=== PATIENT | male | born 1945 | race Caucasian/White ===

== ENCOUNTER 2022-05-08 05:17 | Day surgery (SDC) | payer OTHER ==
[2022-05-03 13:46] VITALS: BMI 24.1
[~2022-05-08 05:17] MED LIST: ACETAMINOPHEN 325 MG TABLET (FP) PO PRN; CYCLOPENTOLATE HCL 1% OPHTH SOLN 2 ML BOTTLE OP SCH; KETOROLAC TROMETHAMINE 0.5% EYE DROP 1 DROP DROPS OP SCH; OFLOXACIN 0.3% OPHTHALMIC SOLUTION 5 ML BOTTLE OP SCH; PHENYLEPHRINE 2.5% OPHTH SOLN 15 ML BOTTLE OP SCH; TROPICAMIDE 1% OPHTH SOLN 15 ML BOTTLE OP SCH
[2022-05-08] MEDS ORDERED: KETOROLAC TROMETHAMINE 0.5% EYE DROP 1 DROP DROPS ONE (07:20)
[2022-05-08] MEDS ORDERED: CYCLOPENTOLATE HCL 1% OPHTH SOLN 2 ML BOTTLE ONE (07:20)
[2022-05-08] MEDS ORDERED: PHENYLEPHRINE 2.5% OPHTH SOLN 15 ML BOTTLE ONE (07:21)
[2022-05-08] MEDS ORDERED: TROPICAMIDE 1% OPHTH SOLN 15 ML BOTTLE ONE (07:21)
[2022-05-08] MEDS ORDERED: OFLOXACIN 0.3% OPHTHALMIC SOLUTION 5 ML BOTTLE ONE (07:21)
[2022-05-08] MEDS ORDERED: LIDOCAINE HCL/PF 1% SDV 5ML VIAL ONE (07:23)
[2022-05-08] MEDS ORDERED: TETRACAINE 0.5% OPHTH SOLN 2 ML BOTTLE ONE (07:23)
[2022-05-08] MEDS ORDERED: POVIDONE-IODINE 5% OPHTHALMIC PREP 30 ML SOLUTION ONE (07:23)
[2022-05-08] MEDS ORDERED: BSS (NA/CA/MG/K) BALANCED SALT SOLUTION OPHTH SOLN 15 ML BOTTLE ONE (07:23)
[2022-05-08] MEDS ORDERED: CYCLOPENTOLATE HCL 1% OPHTH SOLN 2 ML BOTTLE OD ONE ×3 (07:30→07:40)
[2022-05-08] MEDS ORDERED: OFLOXACIN 0.3% OPHTHALMIC SOLUTION 5 ML BOTTLE OD ONE ×3 (07:30→07:40)
[2022-05-08] MEDS ORDERED: KETOROLAC TROMETHAMINE 0.5% EYE DROP 1 DROP DROPS OD ONE ×3 (07:30→07:40)
[2022-05-08] MEDS ORDERED: PHENYLEPHRINE 2.5% OPHTH SOLN 15 ML BOTTLE OD ONE ×3 (07:30→07:40)
[2022-05-08] MEDS ORDERED: TROPICAMIDE 1% OPHTH SOLN 15 ML BOTTLE OD ONE ×3 (07:30→07:40)
[2022-05-08 07:34] VITALS: RESP 18
[2022-05-08] MEDS ORDERED: MIDAZOLAM HCL 2 MG/2 ML SINGLE DOSE VIAL ONE (09:07)
[2022-05-08] MEDS ORDERED: PROPOFOL 20 ML ONE (09:11)
[2022-05-08] MEDS ORDERED: SUCCINYLCHOLINE CHLORIDE 200 MG/10 ML SYRINGE ONE (09:11)
[2022-05-08] MEDS ORDERED: TETRACAINE 0.5% OPHTH SOLN 2 ML BOTTLE TP ONE (09:11)
[2022-05-08] MEDS ORDERED: POVIDONE-IODINE 5% OPHTHALMIC PREP 30 ML SOLUTION OD ONE (09:12)
[2022-05-08] MEDS ORDERED: BSS (NA/CA/MG/K) BALANCED SALT SOLUTION OPHTH SOLN 15 ML BOTTLE OD ONE (09:19)
[2022-05-08] MEDS ORDERED: LIDOCAINE HCL 1% PRESERVATIVE FREE - 30ML VIAL IO ONE (09:20)
[2022-05-08] MEDS ORDERED: CHONDROITIN SU A/HYALUR SOD 1 KIT IO ONE (09:20)
[2022-05-08] MEDS ORDERED: PHENYLEPHRINE/KETOROLAC 4 ML VIAL IO ONE (09:29)
[2022-05-08 11:05] VITALS: BP 144/85; PULSE 63; TEMP 98.6
== END 2022-05-08 11:10 | disposition home or self-care (01) ==
LOC: JASU-SURG 05:17
PROVIDERS: ATTEND Ophthalmology
PROC: 08RJ3JZ Replacement of Right Lens with Synthetic Substitute, Percutaneous Approach (ICD-10-PCS; principal; 2022-05-08 09:00)
DX: H26.9 Unspecified cataract (principal)
CPT/HCPCS: J1097

== ENCOUNTER 2022-07-31 04:31 | Day surgery (SDC) | payer OTHER ==
[2022-07-29 12:49] VITALS: BMI 23.6
[~2022-07-31 04:31] MED LIST changes: +BSS (NA/CA/MG/K) BALANCED SALT SOLUTION OPHTH SOLN 15 ML BOTTLE OS ONE; +BUPIVACAINE HCL/PF 0.75% 10 ML VIAL PNB ONE; +CHONDROITIN SU A/HYALUR SOD 1 KIT IO ONE; -CYCLOPENTOLATE HCL 1% OPHTH SOLN 2 ML BOTTLE OP SCH; -KETOROLAC TROMETHAMINE 0.5% EYE DROP 1 DROP DROPS OP SCH; +LIDOCAINE 1% P/F 10 MG/ML VIAL PNB ONE; +LIDOCAINE HCL/PF 2% SDV 5ML VIAL PNB ONE; -OFLOXACIN 0.3% OPHTHALMIC SOLUTION 5 ML BOTTLE OP SCH; -PHENYLEPHRINE 2.5% OPHTH SOLN 15 ML BOTTLE OP SCH; +PHENYLEPHRINE/KETOROLAC 4 ML VIAL IO ONE; +TETRACAINE 0.5% OPHTH SOLN 2 ML BOTTLE OS ONE; -TROPICAMIDE 1% OPHTH SOLN 15 ML BOTTLE OP SCH; +TRYPAN BLUE 0.5 ML DISP.SYRIN IO ONE
[2022-07-31 10:27] VITALS: RESP 18
[2022-07-31] MEDS ORDERED: CYCLOPENTOLATE HCL 1% OPHTH SOLN 2 ML BOTTLE ONE (10:39)
[2022-07-31] MEDS ORDERED: TROPICAMIDE 1% OPHTH SOLN 15 ML BOTTLE ONE (10:39)
[2022-07-31] MEDS ORDERED: OFLOXACIN 0.3% OPHTHALMIC SOLUTION 5 ML BOTTLE ONE (10:39)
[2022-07-31] MEDS ORDERED: KETOROLAC TROMETHAMINE 0.5% EYE DROP 1 DROP DROPS ONE (10:39)
[2022-07-31] MEDS: KETOROLAC TROMETHAMINE 0.5% EYE DROP 1 DROP DROPS OP SCH ×3 (10:50→11:00)
[2022-07-31] MEDS: TROPICAMIDE 1% OPHTH SOLN 15 ML BOTTLE OP SCH ×3 (10:50→11:19)
[2022-07-31] MEDS: CYCLOPENTOLATE HCL 1% OPHTH SOLN 2 ML BOTTLE OP SCH ×3 (10:50→11:00)
[2022-07-31] MEDS: PHENYLEPHRINE 2.5% OPHTH SOLN 15 ML BOTTLE OP SCH ×3 (10:50→11:00)
[2022-07-31] MEDS: OFLOXACIN 0.3% OPHTHALMIC SOLUTION 5 ML BOTTLE OP SCH ×2 (10:55→11:00)
[2022-07-31] MEDS ORDERED: ONDANSETRON 4 MG/2 ML VIAL ONE (11:59)
[2022-07-31] MEDS ORDERED: LIDOCAINE HCL/PF 2% SDV 5ML VIAL ONE (11:59)
[2022-07-31] MEDS ORDERED: FENTANYL CITRATE/PF 50 MCG/ML VIAL ONE (11:59)
[2022-07-31] MEDS ORDERED: PROPOFOL 20 ML ONE (12:03)
[2022-07-31] MEDS ORDERED: LIDOCAINE HCL/PF 2% SDV 5ML VIAL PNB ONE (12:05)
[2022-07-31] MEDS ORDERED: BUPIVACAINE HCL/PF 0.75% 10 ML VIAL PNB ONE (12:05)
[2022-07-31] MEDS ORDERED: BSS (NA/CA/MG/K) BALANCED SALT SOLUTION OPHTH SOLN 15 ML BOTTLE OS ONE (12:15)
[2022-07-31] MEDS ORDERED: LIDOCAINE 1% P/F 10 MG/ML VIAL PNB ONE (12:16)
[2022-07-31] MEDS ORDERED: CHONDROITIN SU A/HYALUR SOD 1 KIT IO ONE (12:17)
[2022-07-31] MEDS ORDERED: PHENYLEPHRINE/KETOROLAC 4 ML VIAL IO ONE (12:21)
[2022-07-31 14:00] VITALS: BP 111/63; PULSE 72; TEMP 97.8
== END 2022-07-31 14:15 | disposition home or self-care (01) ==
LOC: JASU-SURG 04:31
PROVIDERS: ATTEND Ophthalmology
PROC: 08RK3JZ Replacement of Left Lens with Synthetic Substitute, Percutaneous Approach (ICD-10-PCS; principal; 2022-07-31 12:00)
DX: H26.9 Unspecified cataract (principal)
CPT/HCPCS: J1097; V2632

== ENCOUNTER 2023-05-29 19:24 | Inpatient (IN) | payer OTHER ==
[2023-05-29 19:32] VITALS: BMI 21.9
[2023-05-29] MEDS ORDERED: SODIUM CHLORIDE 0.9% 500 ML INFUS.BAG IV ONE ×2 (20:26→21:52)
[2023-05-29] MEDS ORDERED: ACETAMINOPHEN 1000 MG/100 ML BAG IVPB ONE (20:26)
[2023-05-29] MEDS ORDERED: chlordiazePOXIDE HCL 25 MG CAPSULE PO ONE (20:27)
[2023-05-29] MEDS ORDERED: chlordiazePOXIDE HCL 25 MG CAPSULE ONE (20:44)
[2023-05-29] MEDS ORDERED: ACETAMINOPHEN INJECTION 100 ML IVPB ONE (20:44)
[2023-05-29 21:07] LABS: BASO % 0.6 % (0-2.0); EOS % 0.6 % (0-4.5); HEMATOCRIT 31.3 % (35.4-49); HEMOGLOBIN 10.8 GM/dL (11.7-16.9); LYMPH % 14.8 % (8-40); MCH 32.9 pg (25.7-33.7); MCHC 34.6 g/dl (32.0-35.9); MEAN CELL VOLUME 95.1 fl (80-96); MEAN PLT VOLUME 8.1 fl (7.5-11.1); MONO % 13.7 % (3.8-10.2); NEUT % 70.3 % (42.8-82.8); PLATELET COUNT 277 10^3/uL (134-434); RBC 3.29 M/mm3 (4.00-5.60); RDW 13.8 % (11.9-15.9); WHITE BLOOD COUNT 7.7 K/mm3 (4.0-10.0)
[2023-05-29 21:29] LABS: CHLORIDE 97 mmol/L (98-107); POTASSIUM 5.3 mmol/L (3.5-5.1); SODIUM 135 mmol/L (136-145)
[2023-05-29 21:33] LABS: ALBUMIN 3.8 g/dl (3.4-5.0); ANION GAP 6 MMOL/L (8-16); BLOOD UREA NITROGEN 32.8 mg/dL (7-18); CO2 31 mmol/L (21-32); GLUCOSE,RANDOM 108 mg/dL (74-106)
[2023-05-29 21:34] LABS: LIPASE 89 U/L (73-393)
[2023-05-29 21:36] LABS: CREATININE 1.9 mg/dL (0.55-1.3); SGOT/AST 68 U/L (15-37); SGPT/ALT 52 U/L (13-61)
[2023-05-29 21:38] LABS: BILIRUBIN,TOTAL 1.1 mg/dL (0.2-1); TOT PROT 7.2 g/dl (6.4-8.2)
[2023-05-29 21:39] LABS: ALK PHOS 67 U/L (45-117)
[2023-05-29 21:40] LABS: CALCIUM 14.7 mg/dL (8.5-10.1)
[2023-05-29 22:14] LABS: MAGNESIUM 1.7 mg/dL (1.8-2.4)
[2023-05-29 22:18] LABS: PHOSPHOROUS 4.1 mg/dL (2.5-4.9)
[2023-05-29 22:26] LABS: HIV INTERPRETATION NEGATIVE (NEGATIVE)
[2023-05-29 23:12] LABS: EPI CELLS 13 /uL (0-25.1); HYALINE CASTS 2 /uL (0-3.1); PH,URINE 5.5 (5.0-8.0); URINE APPEARANCE CLEAR; URINE BACTERIA 7 /uL (0-1359); URINE BILIRUBIN NEGATIVE (NEGATIVE); URINE COLOR YELLOW; URINE GLUCOSE (UA) NEGATIVE (NEGATIVE); URINE KETONE NEGATIVE (NEGATIVE); URINE LEUK ESTERASE 1+ (NEGATIVE); URINE NITRITE NEGATIVE (NEGATIVE); URINE PROTEIN TRACE (NEGATIVE); URINE RBC 98 /uL (0-23.9); URINE UROBILINOGEN 0.2 mg/dL (0.2-1.0); URINE WBC 239 /uL (0-25.8)
[2023-05-30 03:17] LABS: POTASSIUM 4.3 mmol/L (3.5-5.1)
[2023-05-30 03:19] LABS: BLOOD UREA NITROGEN 29.9 mg/dL (7-18); CALCIUM 13.1 mg/dL (8.5-10.1)
[2023-05-30 03:23] LABS: CREATININE 1.7 mg/dL (0.55-1.3)
[2023-05-30] MEDS ORDERED: LACTATED RINGERS SOLUTION 1,000 ML/1,000 ML INFUS.BAG IV SCH (03:45)
[2023-05-30] MEDS ORDERED: CALCITONIN - SALMON SYNTHETIC 400 UNIT/2 ML VIAL SQ ONE (03:45)
[2023-05-30] MEDS ORDERED: DENOSUMAB 120 MG/1.7 ML VIAL SQ ONE (11:50)
[2023-05-30] MEDS: LACTATED RINGERS SOLUTION 1,000 ML/1,000 ML INFUS.BAG IV SCH ×2 (11:51→21:19)
[2023-05-30 12:00] LABS: POTASSIUM 4.2 mmol/L (3.5-5.1)
[2023-05-30 12:04] LABS: ALBUMIN 3.4 g/dl (3.4-5.0); BLOOD UREA NITROGEN 26.7 mg/dL (7-18); CALCIUM 12.1 mg/dL (8.5-10.1)
[2023-05-30 12:07] LABS: CREATININE 1.5 mg/dL (0.55-1.3)
[2023-05-30 12:09] LABS: BILIRUBIN,TOTAL 1.1 mg/dL (0.2-1); TOT PROT 6.7 g/dl (6.4-8.2)
[2023-05-30] MEDS: PANTOPRAZOLE 40 MG TABLET PO SCH (12:17)
[2023-05-30 19:40] LABS: POTASSIUM 4.5 mmol/L (3.5-5.1)
[2023-05-30 19:43] LABS: BLOOD UREA NITROGEN 23.3 mg/dL (7-18); CALCIUM 11.3 mg/dL (8.5-10.1)
[2023-05-30 19:47] LABS: CREATININE 1.5 mg/dL (0.55-1.3)
[2023-05-30] MEDS: HEPARIN NA (PORCINE) 5,000 UNITS/ML 1ML VIAL SQ SCH (21:14)
[2023-05-31 07:35] LABS: HEMATOCRIT 30.1 % (35.4-49); HEMOGLOBIN 10.4 GM/dL (11.7-16.9); MCH 33.5 pg (25.7-33.7); MCHC 34.5 g/dl (32.0-35.9); MEAN PLT VOLUME 8.4 fl (7.5-11.1); PLATELET COUNT 264 10^3/uL (134-434); RDW 13.9 % (11.9-15.9); WHITE BLOOD COUNT 8.2 K/mm3 (4.0-10.0)
[2023-05-31 07:47] LABS: POTASSIUM 4.1 mmol/L (3.5-5.1)
[2023-05-31 07:49] LABS: CALCIUM 10.9 mg/dL (8.5-10.1)
[2023-05-31 07:50] LABS: BLOOD UREA NITROGEN 18.4 mg/dL (7-18)
[2023-05-31 07:53] LABS: CREATININE 1.4 mg/dL (0.55-1.3)
[2023-05-31] MEDS: HEPARIN NA (PORCINE) 5,000 UNITS/ML 1ML VIAL SQ SCH ×2 (10:30→21:43)
[2023-05-31] MEDS: PANTOPRAZOLE 40 MG TABLET PO SCH (10:30)
[2023-05-31] MEDS: SODIUM CHLORIDE 1,000 ML IV SCH (13:14)
[2023-05-31] MEDS: THIAMINE HCL 200 MG/2 ML VIAL IVPB SCH ×2 (14:28→21:43)
[2023-05-31] MEDS: LACTATED RINGERS SOLUTION 1,000 ML/1,000 ML INFUS.BAG IV SCH (14:29)
[2023-06-01] MEDS: SODIUM CHLORIDE 1,000 ML IV SCH ×2 (05:12→17:55)
[2023-06-01 07:51] LABS: BASO % 0.5 % (0-2.0); EOS % 2.5 % (0-4.5); HEMATOCRIT 29.4 % (35.4-49); HEMOGLOBIN 10.2 GM/dL (11.7-16.9); LYMPH % 16.7 % (8-40); MCH 33.3 pg (25.7-33.7); MCHC 34.6 g/dl (32.0-35.9); MEAN CELL VOLUME 96.3 fl (80-96); MEAN PLT VOLUME 8.4 fl (7.5-11.1); MONO % 10.1 % (3.8-10.2); NEUT % 70.2 % (42.8-82.8); PLATELET COUNT 230 10^3/uL (134-434); RBC 3.05 M/mm3 (4.00-5.60); RDW 13.8 % (11.9-15.9); WHITE BLOOD COUNT 7.3 K/mm3 (4.0-10.0)
[2023-06-01 08:02] LABS: POTASSIUM 3.8 mmol/L (3.5-5.1)
[2023-06-01 08:05] LABS: CALCIUM 10.1 mg/dL (8.5-10.1)
[2023-06-01 08:06] LABS: ALBUMIN 3.1 g/dl (3.4-5.0); BLOOD UREA NITROGEN 14.1 mg/dL (7-18); MAGNESIUM 1.2 mg/dL (1.8-2.4)
[2023-06-01 08:09] LABS: CREATININE 1.4 mg/dL (0.55-1.3); PHOSPHOROUS 2.2 mg/dL (2.5-4.9)
[2023-06-01 08:11] LABS: BILIRUBIN,TOTAL 0.6 mg/dL (0.2-1)
[2023-06-01] MEDS: HEPARIN NA (PORCINE) 5,000 UNITS/ML 1ML VIAL SQ SCH ×2 (10:06→22:45)
[2023-06-01] MEDS: THIAMINE HCL 200 MG/2 ML VIAL IVPB SCH ×2 (10:06→22:45)
[2023-06-01] MEDS: PANTOPRAZOLE 40 MG TABLET PO SCH (10:06)
[2023-06-01] MEDS ORDERED: MAGNESIUM SULF 50% (8.12 MEQ/2 ML-1 GM VIAL) IVPB ONE (11:30)
[2023-06-01] MEDS ORDERED: NAPH,MB-DB/K PH,MBDB POWDER PACKET PO ONE (11:30)
[2023-06-02 07:38] LABS: BASO % 0.6 % (0-2.0); EOS % 2.5 % (0-4.5); HEMATOCRIT 26.2 % (35.4-49); LYMPH % 19.5 % (8-40); MCH 33.2 pg (25.7-33.7); MCHC 34.2 g/dl (32.0-35.9); MEAN PLT VOLUME 8.5 fl (7.5-11.1); MONO % 9.8 % (3.8-10.2); NEUT % 67.6 % (42.8-82.8); PLATELET COUNT 207 10^3/uL (134-434); RBC 2.71 M/mm3 (4.00-5.60); RDW 13.6 % (11.9-15.9); WHITE BLOOD COUNT 7.6 K/mm3 (4.0-10.0)
[2023-06-02 07:53] LABS: POTASSIUM 3.7 mmol/L (3.5-5.1)
[2023-06-02 08:03] LABS: CALCIUM 9.5 mg/dL (8.5-10.1)
[2023-06-02 08:04] LABS: ALBUMIN 2.7 g/dl (3.4-5.0); BLOOD UREA NITROGEN 13.5 mg/dL (7-18); MAGNESIUM 1.2 mg/dL (1.8-2.4)
[2023-06-02 08:06] LABS: CREATININE 1.5 mg/dL (0.55-1.3); PHOSPHOROUS 2.6 mg/dL (2.5-4.9)
[2023-06-02 08:08] LABS: BILIRUBIN,TOTAL 0.5 mg/dL (0.2-1); TOT PROT 5.4 g/dl (6.4-8.2)
[2023-06-02] MEDS ORDERED: MAGNESIUM SULF 50% (8.12 MEQ/2 ML-1 GM VIAL) IVPB ONE ×2 (08:45→09:45)
[2023-06-02] MEDS: FAMOTIDINE 20 MG TABLET PO SCH (09:52)
[2023-06-02] MEDS: HEPARIN NA (PORCINE) 5,000 UNITS/ML 1ML VIAL SQ SCH ×2 (09:52→22:03)
[2023-06-02] MEDS: THIAMINE HCL 200 MG/2 ML VIAL IVPB SCH ×2 (09:53→22:03)
[2023-06-02] MEDS: SODIUM CHLORIDE 1,000 ML IV SCH (16:11)
[2023-06-03 07:32] LABS: HEMATOCRIT 27.2 % (35.4-49); HEMOGLOBIN 9.4 GM/dL (11.7-16.9); MCH 33.4 pg (25.7-33.7); MCHC 34.3 g/dl (32.0-35.9); MEAN CELL VOLUME 97.2 fl (80-96); MEAN PLT VOLUME 8.6 fl (7.5-11.1); PLATELET COUNT 201 10^3/uL (134-434); RDW 13.7 % (11.9-15.9); WHITE BLOOD COUNT 7.2 K/mm3 (4.0-10.0)
[2023-06-03 07:47] LABS: POTASSIUM 3.7 mmol/L (3.5-5.1)
[2023-06-03 07:51] LABS: ALBUMIN 3.2 g/dl (3.4-5.0); CALCIUM 10.2 mg/dL (8.5-10.1)
[2023-06-03 07:52] LABS: BLOOD UREA NITROGEN 14.6 mg/dL (7-18)
[2023-06-03 07:54] LABS: CREATININE 1.4 mg/dL (0.55-1.3)
[2023-06-03 07:56] LABS: BILIRUBIN,TOTAL 0.6 mg/dL (0.2-1); TOT PROT 6.3 g/dl (6.4-8.2)
[2023-06-03 09:13] LABS: MAGNESIUM 1.6 mg/dL (1.8-2.4)
[2023-06-03] MEDS: HEPARIN NA (PORCINE) 5,000 UNITS/ML 1ML VIAL SQ SCH ×2 (09:52→21:26)
[2023-06-03] MEDS: THIAMINE HCL 200 MG/2 ML VIAL IVPB SCH (09:52)
[2023-06-03] MEDS: FAMOTIDINE 20 MG TABLET PO SCH (09:52)
[2023-06-03] MEDS: SODIUM CHLORIDE 1,000 ML IV SCH ×2 (13:14→19:21)
[2023-06-03] MEDS ORDERED: MAGNESIUM 2GM/50ML STERILE WATER IVPB IVPB ONE (14:40)
[2023-06-03] MEDS ORDERED: SODIUM CHLORIDE 1,000 ML IV SCH (18:50)
[2023-06-04] MEDS: HEPARIN NA (PORCINE) 5,000 UNITS/ML 1ML VIAL SQ SCH ×3 (05:21→21:24)
[2023-06-04 09:37] LABS: HEMATOCRIT 25.6 % (35.4-49); HEMOGLOBIN 9.2 GM/dL (11.7-16.9); MCH 33.8 pg (25.7-33.7); MCHC 35.8 g/dl (32.0-35.9); MEAN CELL VOLUME 94.3 fl (80-96); MEAN PLT VOLUME 8.7 fl (7.5-11.1); PLATELET COUNT 194 10^3/uL (134-434); RBC 2.71 M/mm3 (4.00-5.60); RDW 13.7 % (11.9-15.9)
[2023-06-04] MEDS: THIAMINE HCL 100 MG TABLET (FP) PO SCH (09:38)
[2023-06-04] MEDS: FOLIC ACID 1 MG TABLET (FP) PO SCH (09:38)
[2023-06-04] MEDS: FAMOTIDINE 20 MG TABLET PO SCH (09:38)
[2023-06-04 09:59] LABS: POTASSIUM 3.6 mmol/L (3.5-5.1)
[2023-06-04 10:07] LABS: ALBUMIN 3.1 g/dl (3.4-5.0); BLOOD UREA NITROGEN 14.5 mg/dL (7-18); MAGNESIUM 1.7 mg/dL (1.8-2.4); PHOSPHOROUS 3.3 mg/dL (2.5-4.9)
[2023-06-04 10:09] LABS: BILIRUBIN,TOTAL 0.5 mg/dL (0.2-1)
[2023-06-04 10:10] LABS: CREATININE 1.3 mg/dL (0.55-1.3)
[2023-06-04] MEDS ORDERED: MAGNESIUM 2GM/50ML STERILE WATER IVPB IVPB ONE (14:53)
[2023-06-04] MEDS ORDERED: PEG 3350/NA SULF BICARB CL/KCL 4000 ML SOLN.RECON PO ONE (16:00)
[2023-06-04] MEDS: SODIUM CHLORIDE 1,000 ML IV SCH (21:24)
[2023-06-05] MEDS: HEPARIN NA (PORCINE) 5,000 UNITS/ML 1ML VIAL SQ SCH ×3 (05:01→21:56)
[2023-06-05] MEDS: SODIUM CHLORIDE 1,000 ML IV SCH (05:39)
[2023-06-05] MEDS ORDERED: PEG 3350/NA SULF BICARB CL/KCL 4000 ML SOLN.RECON PO ONE (10:00)
[2023-06-05] MEDS: FOLIC ACID 1 MG TABLET (FP) PO SCH (10:17)
[2023-06-05] MEDS: THIAMINE HCL 100 MG TABLET (FP) PO SCH (10:17)
[2023-06-05] MEDS: FAMOTIDINE 20 MG TABLET PO SCH (10:17)
[2023-06-05] MEDS ORDERED: BISACODYL 5 MG TABLET.DR (FP) PO ONE (20:00)
[2023-06-06 08:06] LABS: CARCINOEMBRYONIC ANTIGEN 1.8 ng/mL (0.0-4.7)
[2023-06-06] MEDS: FAMOTIDINE 20 MG TABLET PO SCH (11:48)
[2023-06-06] MEDS: FOLIC ACID 1 MG TABLET (FP) PO SCH (11:48)
[2023-06-06] MEDS: THIAMINE HCL 100 MG TABLET (FP) PO SCH (11:48)
[2023-06-06] MEDS: amLODIPine BESYLATE 5 MG TABLET (FP) PO SCH (12:08)
[2023-06-06 12:09] LABS: BASO % 0.6 % (0-2.0); EOS % 2.7 % (0-4.5); HEMATOCRIT 26.8 % (35.4-49); HEMOGLOBIN 9.5 GM/dL (11.7-16.9); LYMPH % 19.2 % (8-40); MCH 33.4 pg (25.7-33.7); MCHC 35.2 g/dl (32.0-35.9); MEAN CELL VOLUME 94.8 fl (80-96); MEAN PLT VOLUME 8.3 fl (7.5-11.1); MONO % 15.3 % (3.8-10.2); NEUT % 62.2 % (42.8-82.8); PLATELET COUNT 200 10^3/uL (134-434); RBC 2.83 M/mm3 (4.00-5.60); WHITE BLOOD COUNT 5.1 K/mm3 (4.0-10.0)
[2023-06-06 12:22] LABS: INR 1.14 (0.83-1.09); PROTHROMBIN TIME (PATIENT) 13.2 SEC (9.7-13.0)
[2023-06-06 12:32] LABS: POTASSIUM 3.6 mmol/L (3.5-5.1)
[2023-06-06 12:33] LABS: CALCIUM 10.1 mg/dL (8.5-10.1)
[2023-06-06 12:35] LABS: ALBUMIN 3.4 g/dl (3.4-5.0); BLOOD UREA NITROGEN 9.2 mg/dL (7-18)
[2023-06-06 12:38] LABS: BILIRUBIN,TOTAL 0.6 mg/dL (0.2-1); CREATININE 1.2 mg/dL (0.55-1.3); TOT PROT 6.6 g/dl (6.4-8.2)
[2023-06-06] MEDS: SODIUM CHLORIDE 1,000 ML IV SCH (21:24)
[2023-06-07] MEDS: HEPARIN NA (PORCINE) 5,000 UNITS/ML 1ML VIAL SQ SCH ×3 (06:26→21:49)
[2023-06-07 08:13] LABS: BASO % 0.6 % (0-2.0); EOS % 2.2 % (0-4.5); HEMATOCRIT 25.1 % (35.4-49); HEMOGLOBIN 8.8 GM/dL (11.7-16.9); LYMPH % 22.1 % (8-40); MCH 33.7 pg (25.7-33.7); MEAN CELL VOLUME 96.1 fl (80-96); MEAN PLT VOLUME 8.4 fl (7.5-11.1); MONO % 14.1 % (3.8-10.2); PLATELET COUNT 202 10^3/uL (134-434); RBC 2.61 M/mm3 (4.00-5.60); RDW 13.8 % (11.9-15.9); WHITE BLOOD COUNT 6.3 K/mm3 (4.0-10.0)
[2023-06-07 08:27] LABS: POTASSIUM 3.5 mmol/L (3.5-5.1)
[2023-06-07 08:39] LABS: CALCIUM 10.3 mg/dL (8.5-10.1)
[2023-06-07 08:40] LABS: ALBUMIN 3.1 g/dl (3.4-5.0); BLOOD UREA NITROGEN 17.2 mg/dL (7-18); MAGNESIUM 1.2 mg/dL (1.8-2.4)
[2023-06-07 08:43] LABS: CREATININE 1.3 mg/dL (0.55-1.3); PHOSPHOROUS 3.4 mg/dL (2.5-4.9)
[2023-06-07 08:45] LABS: BILIRUBIN,TOTAL 0.6 mg/dL (0.2-1); TOT PROT 5.9 g/dl (6.4-8.2)
[2023-06-07] MEDS: THIAMINE HCL 100 MG TABLET (FP) PO SCH (09:12)
[2023-06-07] MEDS: FOLIC ACID 1 MG TABLET (FP) PO SCH (09:12)
[2023-06-07] MEDS: FAMOTIDINE 20 MG TABLET PO SCH (09:12)
[2023-06-07] MEDS: amLODIPine BESYLATE 5 MG TABLET (FP) PO SCH (09:12)
[2023-06-07] MEDS: PANTOPRAZOLE 40 MG TABLET PO SCH (09:12)
[2023-06-07] MEDS: SODIUM CHLORIDE 1,000 ML IV SCH ×2 (10:40→19:00)
[2023-06-07] MEDS ORDERED: MAGNESIUM SULF 50% (8.12 MEQ/2 ML-1 GM VIAL) IVPB ONE (11:45)
[2023-06-07] MEDS: MAGNESIUM OXIDE 400 MG TABLET (FP) PO SCH (21:49)
[2023-06-08] MEDS: SODIUM CHLORIDE 1,000 ML IV SCH ×2 (00:52→22:45)
[2023-06-08] MEDS: HEPARIN NA (PORCINE) 5,000 UNITS/ML 1ML VIAL SQ SCH ×3 (05:52→21:46)
[2023-06-08] MEDS: MAGNESIUM OXIDE 400 MG TABLET (FP) PO SCH ×2 (09:20→21:46)
[2023-06-08] MEDS: FAMOTIDINE 20 MG TABLET PO SCH (09:20)
[2023-06-08] MEDS: amLODIPine BESYLATE 5 MG TABLET (FP) PO SCH (09:20)
[2023-06-08] MEDS: PANTOPRAZOLE 40 MG TABLET PO SCH (09:20)
[2023-06-08] MEDS: FOLIC ACID 1 MG TABLET (FP) PO SCH (09:20)
[2023-06-08] MEDS: THIAMINE HCL 100 MG TABLET (FP) PO SCH (09:20)
[2023-06-08 09:24] LABS: BASO % 0.6 % (0-2.0); EOS % 2.6 % (0-4.5); HEMATOCRIT 26.9 % (35.4-49); HEMOGLOBIN 9.5 GM/dL (11.7-16.9); MCH 33.3 pg (25.7-33.7); MCHC 35.3 g/dl (32.0-35.9); MEAN CELL VOLUME 94.4 fl (80-96); MEAN PLT VOLUME 8.5 fl (7.5-11.1); MONO % 12.8 % (3.8-10.2); PLATELET COUNT 229 10^3/uL (134-434); RBC 2.85 M/mm3 (4.00-5.60); RDW 13.8 % (11.9-15.9)
[2023-06-08 09:52] LABS: POTASSIUM 3.8 mmol/L (3.5-5.1)
[2023-06-08 09:57] LABS: ALBUMIN 3.3 g/dl (3.4-5.0); CALCIUM 11.1 mg/dL (8.5-10.1)
[2023-06-08 10:00] LABS: CREATININE 1.4 mg/dL (0.55-1.3)
[2023-06-08 10:02] LABS: BILIRUBIN,TOTAL 0.6 mg/dL (0.2-1); TOT PROT 6.5 g/dl (6.4-8.2)
[2023-06-09] MEDS: HEPARIN NA (PORCINE) 5,000 UNITS/ML 1ML VIAL SQ SCH ×3 (06:21→21:24)
[2023-06-09] MEDS: SODIUM CHLORIDE 1,000 ML IV SCH ×2 (10:43→21:26)
[2023-06-09] MEDS: THIAMINE HCL 100 MG TABLET (FP) PO SCH (10:47)
[2023-06-09] MEDS: FOLIC ACID 1 MG TABLET (FP) PO SCH (10:47)
[2023-06-09] MEDS: MAGNESIUM OXIDE 400 MG TABLET (FP) PO SCH ×2 (10:47→21:25)
[2023-06-09] MEDS: PANTOPRAZOLE 40 MG TABLET PO SCH (10:47)
[2023-06-09] MEDS: FAMOTIDINE 20 MG TABLET PO SCH (10:47)
[2023-06-09] MEDS: amLODIPine BESYLATE 5 MG TABLET (FP) PO SCH (10:47)
[2023-06-09 13:07] LABS: BASO % 0.5 % (0-2.0); EOS % 2.6 % (0-4.5); HEMATOCRIT 27.9 % (35.4-49); HEMOGLOBIN 9.7 GM/dL (11.7-16.9); LYMPH % 13.7 % (8-40); MCHC 34.7 g/dl (32.0-35.9); MEAN CELL VOLUME 95.3 fl (80-96); MEAN PLT VOLUME 8.4 fl (7.5-11.1); MONO % 10.8 % (3.8-10.2); NEUT % 72.4 % (42.8-82.8); PLATELET COUNT 245 10^3/uL (134-434); RBC 2.93 M/mm3 (4.00-5.60); RDW 14.1 % (11.9-15.9); WHITE BLOOD COUNT 9.4 K/mm3 (4.0-10.0)
[2023-06-09 13:31] LABS: POTASSIUM 3.8 mmol/L (3.5-5.1)
[2023-06-09 13:33] LABS: CALCIUM 11.8 mg/dL (8.5-10.1)
[2023-06-09 13:34] LABS: ALBUMIN 3.4 g/dl (3.4-5.0); BLOOD UREA NITROGEN 20.9 mg/dL (7-18)
[2023-06-09 13:37] LABS: CREATININE 1.5 mg/dL (0.55-1.3)
[2023-06-09 13:38] LABS: BILIRUBIN,TOTAL 0.4 mg/dL (0.2-1); TOT PROT 6.6 g/dl (6.4-8.2)
[2023-06-10] MEDS: HEPARIN NA (PORCINE) 5,000 UNITS/ML 1ML VIAL SQ SCH ×3 (05:33→21:02)
[2023-06-10] MEDS: amLODIPine BESYLATE 5 MG TABLET (FP) PO SCH (09:50)
[2023-06-10] MEDS: THIAMINE HCL 100 MG TABLET (FP) PO SCH (09:50)
[2023-06-10] MEDS: FAMOTIDINE 20 MG TABLET PO SCH (09:50)
[2023-06-10] MEDS: FOLIC ACID 1 MG TABLET (FP) PO SCH (09:50)
[2023-06-10] MEDS: PANTOPRAZOLE 40 MG TABLET PO SCH (09:50)
[2023-06-10] MEDS: MAGNESIUM OXIDE 400 MG TABLET (FP) PO SCH ×2 (09:50→21:02)
[2023-06-10] MEDS ORDERED: ZOLEDRONIC ACID 4 MG in SODIUM CHLORIDE 100 ML IVPB ONE (10:08)
[2023-06-10 10:26] LABS: BASO % 0.6 % (0-2.0); HEMOGLOBIN 8.6 GM/dL (11.7-16.9); LYMPH % 22.7 % (8-40); MCH 32.9 pg (25.7-33.7); MCHC 34.3 g/dl (32.0-35.9); MEAN CELL VOLUME 96.1 fl (80-96); MEAN PLT VOLUME 8.5 fl (7.5-11.1); MONO % 12.5 % (3.8-10.2); NEUT % 61.2 % (42.8-82.8); PLATELET COUNT 233 10^3/uL (134-434); RDW 13.9 % (11.9-15.9); WHITE BLOOD COUNT 5.9 K/mm3 (4.0-10.0)
[2023-06-10 10:38] LABS: POTASSIUM 3.8 mmol/L (3.5-5.1)
[2023-06-10 10:47] LABS: BLOOD UREA NITROGEN 22.7 mg/dL (7-18)
[2023-06-10 10:49] LABS: CALCIUM 11.4 mg/dL (8.5-10.1); CREATININE 1.3 mg/dL (0.55-1.3); MAGNESIUM 1.5 mg/dL (1.8-2.4); PHOSPHOROUS 2.7 mg/dL (2.5-4.9)
[2023-06-10 10:51] LABS: BILIRUBIN,TOTAL 0.6 mg/dL (0.2-1)
[2023-06-10] MEDS ORDERED: ZOLEDRONIC ACID 3 MG in SODIUM CHLORIDE 100 ML IVPB ONE (12:00)
[2023-06-10] MEDS ORDERED: MAGNESIUM 2GM/50ML STERILE WATER IVPB IVPB ONE (15:16)
[2023-06-11] MEDS: HEPARIN NA (PORCINE) 5,000 UNITS/ML 1ML VIAL SQ SCH ×3 (05:07→22:02)
[2023-06-11 08:42] LABS: BASO % 0.7 % (0-2.0); EOS % 2.2 % (0-4.5); HEMATOCRIT 30.6 % (35.4-49); HEMOGLOBIN 10.4 GM/dL (11.7-16.9); LYMPH % 13.2 % (8-40); MCHC 34.1 g/dl (32.0-35.9); MEAN CELL VOLUME 96.6 fl (80-96); MONO % 9.7 % (3.8-10.2); NEUT % 74.2 % (42.8-82.8); PLATELET COUNT 266 10^3/uL (134-434); RBC 3.16 M/mm3 (4.00-5.60); RDW 13.7 % (11.9-15.9); WHITE BLOOD COUNT 8.5 K/mm3 (4.0-10.0)
[2023-06-11 09:08] LABS: CALCIUM 12.7 mg/dL (8.5-10.1)
[2023-06-11 09:09] LABS: ALBUMIN 3.7 g/dl (3.4-5.0); BLOOD UREA NITROGEN 25.4 mg/dL (7-18); MAGNESIUM 1.8 mg/dL (1.8-2.4)
[2023-06-11 09:12] LABS: CREATININE 1.5 mg/dL (0.55-1.3); PHOSPHOROUS 2.7 mg/dL (2.5-4.9)
[2023-06-11 09:13] LABS: BILIRUBIN,TOTAL 0.6 mg/dL (0.2-1); TOT PROT 7.1 g/dl (6.4-8.2)
[2023-06-11] MEDS: amLODIPine BESYLATE 5 MG TABLET (FP) PO SCH (09:28)
[2023-06-11] MEDS: THIAMINE HCL 100 MG TABLET (FP) PO SCH (09:28)
[2023-06-11] MEDS: FAMOTIDINE 20 MG TABLET PO SCH (09:28)
[2023-06-11] MEDS: PANTOPRAZOLE 40 MG TABLET PO SCH (09:28)
[2023-06-11] MEDS: FOLIC ACID 1 MG TABLET (FP) PO SCH (09:28)
[2023-06-11] MEDS: MAGNESIUM OXIDE 400 MG TABLET (FP) PO SCH ×2 (09:28→22:02)
[2023-06-11] MEDS ORDERED: amLODIPine BESYLATE 5 MG TABLET (FP) PO ONE (10:30)
[2023-06-11] MEDS: SODIUM CHLORIDE 1,000 ML IV SCH (13:22)
[2023-06-11] MEDS ORDERED: ACETAMINOPHEN 1000 MG/100 ML BAG IVPB ONE (20:57)
[2023-06-11 21:37] LABS: EPI CELLS 31 /uL (0-25.1); HYALINE CASTS 2 /uL (0-3.1); PH,URINE 7.5 (5.0-8.0); URINE APPEARANCE TURBID; URINE BACTERIA 59 /uL (0-1359); URINE BILIRUBIN NEGATIVE (NEGATIVE); URINE COLOR YELLOW; URINE GLUCOSE (UA) NEGATIVE (NEGATIVE); URINE KETONE NEGATIVE (NEGATIVE); URINE LEUK ESTERASE 1+ (NEGATIVE); URINE NITRITE NEGATIVE (NEGATIVE); URINE PROTEIN NEGATIVE (NEGATIVE); URINE RBC 39 /uL (0-23.9); URINE UROBILINOGEN 0.2 mg/dL (0.2-1.0); URINE WBC 85 /uL (0-25.8)
[2023-06-12] MEDS: SODIUM CHLORIDE 1,000 ML IV SCH ×3 (02:30→17:19)
[2023-06-12] MEDS ORDERED: ACETAMINOPHEN 1000 MG/100 ML BAG IVPB ONE (05:57)
[2023-06-12] MEDS: HEPARIN NA (PORCINE) 5,000 UNITS/ML 1ML VIAL SQ SCH ×3 (06:18→21:11)
[2023-06-12] MEDS: FAMOTIDINE 20 MG TABLET PO SCH (09:42)
[2023-06-12] MEDS: PANTOPRAZOLE 40 MG TABLET PO SCH (09:42)
[2023-06-12] MEDS: THIAMINE HCL 100 MG TABLET (FP) PO SCH (09:42)
[2023-06-12] MEDS: FOLIC ACID 1 MG TABLET (FP) PO SCH (09:42)
[2023-06-12] MEDS: MAGNESIUM OXIDE 400 MG TABLET (FP) PO SCH ×2 (09:46→21:11)
[2023-06-12] MEDS ORDERED: amLODIPine BESYLATE 10 MG TABLET (FP) PO SCH (10:00)
[2023-06-12 11:08] LABS: HEMATOCRIT 25.5 % (35.4-49); HEMOGLOBIN 8.7 GM/dL (11.7-16.9); MEAN CELL VOLUME 97.1 fl (80-96); MEAN PLT VOLUME 8.6 fl (7.5-11.1); PLATELET COUNT 229 10^3/uL (134-434); RBC 2.62 M/mm3 (4.00-5.60); RDW 13.9 % (11.9-15.9); WHITE BLOOD COUNT 9.1 K/mm3 (4.0-10.0)
[2023-06-12 11:34] LABS: POTASSIUM 4.3 mmol/L (3.5-5.1)
[2023-06-12 11:38] LABS: BLOOD UREA NITROGEN 23.8 mg/dL (7-18)
[2023-06-12 11:43] LABS: CALCIUM 10.5 mg/dL (8.5-10.1)
[2023-06-12] MEDS: CEFTRIAXONE 1 GM in DEXTROSE 5%-WATER - 50 ML IVPB SCH (17:17)
[2023-06-13] MEDS: SODIUM CHLORIDE 1,000 ML IV SCH ×2 (05:45→14:12)
[2023-06-13] MEDS: HEPARIN NA (PORCINE) 5,000 UNITS/ML 1ML VIAL SQ SCH ×3 (06:01→22:39)
[2023-06-13] MEDS: MAGNESIUM OXIDE 400 MG TABLET (FP) PO SCH ×2 (09:36→22:39)
[2023-06-13] MEDS: FAMOTIDINE 20 MG TABLET PO SCH (09:36)
[2023-06-13] MEDS: CEFTRIAXONE 1 GM in DEXTROSE 5%-WATER - 50 ML IVPB SCH (09:36)
[2023-06-13] MEDS: THIAMINE HCL 100 MG TABLET (FP) PO SCH (09:36)
[2023-06-13] MEDS: PANTOPRAZOLE 40 MG TABLET PO SCH (09:36)
[2023-06-13] MEDS: FOLIC ACID 1 MG TABLET (FP) PO SCH (09:36)
[2023-06-13 13:04] LABS: POTASSIUM 3.9 mmol/L (3.5-5.1)
[2023-06-13 13:11] LABS: ALBUMIN 3.3 g/dl (3.4-5.0); BLOOD UREA NITROGEN 24.3 mg/dL (7-18); CALCIUM 10.2 mg/dL (8.5-10.1)
[2023-06-13 13:13] LABS: CREATININE 1.9 mg/dL (0.55-1.3)
[2023-06-13 13:15] LABS: BILIRUBIN,TOTAL 0.3 mg/dL (0.2-1); TOT PROT 6.8 g/dl (6.4-8.2)
[2023-06-14] MEDS: HEPARIN NA (PORCINE) 5,000 UNITS/ML 1ML VIAL SQ SCH ×3 (06:45→21:01)
[2023-06-14 09:14] LABS: BASO % 0.8 % (0-2.0); HEMATOCRIT 24.4 % (35.4-49); HEMOGLOBIN 8.3 GM/dL (11.7-16.9); LYMPH % 17.3 % (8-40); MCH 32.8 pg (25.7-33.7); MCHC 33.9 g/dl (32.0-35.9); MEAN CELL VOLUME 96.8 fl (80-96); MEAN PLT VOLUME 8.5 fl (7.5-11.1); MONO % 15.7 % (3.8-10.2); NEUT % 61.2 % (42.8-82.8); PLATELET COUNT 221 10^3/uL (134-434); RBC 2.52 M/mm3 (4.00-5.60); RDW 13.9 % (11.9-15.9); WHITE BLOOD COUNT 5.3 K/mm3 (4.0-10.0)
[2023-06-14 09:28] LABS: POTASSIUM 3.9 mmol/L (3.5-5.1)
[2023-06-14 09:31] LABS: ALBUMIN 2.9 g/dl (3.4-5.0); CALCIUM 10.6 mg/dL (8.5-10.1); MAGNESIUM 1.6 mg/dL (1.8-2.4)
[2023-06-14 09:34] LABS: CREATININE 1.7 mg/dL (0.55-1.3); PHOSPHOROUS 2.8 mg/dL (2.5-4.9)
[2023-06-14 09:36] LABS: BILIRUBIN,TOTAL 0.7 mg/dL (0.2-1); TOT PROT 5.9 g/dl (6.4-8.2)
[2023-06-14] MEDS: CEFTRIAXONE 1 GM in DEXTROSE 5%-WATER - 50 ML IVPB SCH (10:39)
[2023-06-14] MEDS: FAMOTIDINE 20 MG TABLET PO SCH (10:43)
[2023-06-14] MEDS: THIAMINE HCL 100 MG TABLET (FP) PO SCH (10:43)
[2023-06-14] MEDS: PANTOPRAZOLE 40 MG TABLET PO SCH (10:43)
[2023-06-14] MEDS: MAGNESIUM OXIDE 400 MG TABLET (FP) PO SCH ×2 (10:43→21:01)
[2023-06-14] MEDS: FOLIC ACID 1 MG TABLET (FP) PO SCH (10:43)
[2023-06-14] MEDS: SODIUM CHLORIDE 1,000 ML IV SCH ×2 (11:14→13:36)
[2023-06-14] MEDS ORDERED: MAGNESIUM 1GM/D5W 100ML - 100 ML IVPB IVPB ONE (13:45)
[2023-06-14] MEDS ORDERED: IRON SUCROSE INJECTION 100 MG in SODIUM CHLORIDE 95 ML IVPB ONE (15:30)
[2023-06-14] MEDS ORDERED: MELATONIN 5 MG TABLETS PO ONE (22:33)
[2023-06-15] MEDS: SODIUM CHLORIDE 1,000 ML IV SCH ×3 (05:02→17:22)
[2023-06-15] MEDS: HEPARIN NA (PORCINE) 5,000 UNITS/ML 1ML VIAL SQ SCH ×3 (06:10→21:16)
[2023-06-15] MEDS: CEFTRIAXONE 1 GM in DEXTROSE 5%-WATER - 50 ML IVPB SCH (09:22)
[2023-06-15] MEDS: PANTOPRAZOLE 40 MG TABLET PO SCH (09:22)
[2023-06-15] MEDS: THIAMINE HCL 100 MG TABLET (FP) PO SCH (09:22)
[2023-06-15] MEDS: FAMOTIDINE 20 MG TABLET PO SCH (09:23)
[2023-06-15] MEDS: FOLIC ACID 1 MG TABLET (FP) PO SCH (09:23)
[2023-06-15] MEDS: MAGNESIUM OXIDE 400 MG TABLET (FP) PO SCH ×2 (09:23→21:17)
[2023-06-15 10:25] LABS: BASO % 0.7 % (0-2.0); EOS % 4.9 % (0-4.5); HEMATOCRIT 25.2 % (35.4-49); HEMOGLOBIN 9.1 GM/dL (11.7-16.9); LYMPH % 15.4 % (8-40); MCHC 35.9 g/dl (32.0-35.9); MEAN CELL VOLUME 94.6 fl (80-96); MEAN PLT VOLUME 8.2 fl (7.5-11.1); MONO % 14.2 % (3.8-10.2); NEUT % 64.8 % (42.8-82.8); PLATELET COUNT 247 10^3/uL (134-434); RBC 2.67 M/mm3 (4.00-5.60); RDW 13.6 % (11.9-15.9); WHITE BLOOD COUNT 4.7 K/mm3 (4.0-10.0)
[2023-06-15 11:04] LABS: POTASSIUM 3.8 mmol/L (3.5-5.1)
[2023-06-15 11:06] LABS: CALCIUM 10.1 mg/dL (8.5-10.1)
[2023-06-15 11:07] LABS: BLOOD UREA NITROGEN 20.7 mg/dL (7-18)
[2023-06-15 11:10] LABS: CREATININE 1.6 mg/dL (0.55-1.3)
[2023-06-15] MEDS: MELATONIN 1 MG TABLET PO SCH (21:17)
[2023-06-16] MEDS: HEPARIN NA (PORCINE) 5,000 UNITS/ML 1ML VIAL SQ SCH ×3 (05:27→21:27)
[2023-06-16] MEDS: SODIUM CHLORIDE 1,000 ML IV SCH ×2 (09:44→14:34)
[2023-06-16] MEDS: FAMOTIDINE 20 MG TABLET PO SCH (09:45)
[2023-06-16] MEDS: PANTOPRAZOLE 40 MG TABLET PO SCH (09:45)
[2023-06-16] MEDS: FOLIC ACID 1 MG TABLET (FP) PO SCH (09:45)
[2023-06-16] MEDS: MAGNESIUM OXIDE 400 MG TABLET (FP) PO SCH ×2 (09:45→21:26)
[2023-06-16] MEDS: THIAMINE HCL 100 MG TABLET (FP) PO SCH (09:45)
[2023-06-16 12:16] LABS: BASO % 0.6 % (0-2.0); EOS % 3.8 % (0-4.5); HEMATOCRIT 28.2 % (35.4-49); HEMOGLOBIN 10.2 GM/dL (11.7-16.9); LYMPH % 16.1 % (8-40); MCHC 36.1 g/dl (32.0-35.9); MEAN CELL VOLUME 94.2 fl (80-96); MEAN PLT VOLUME 8.1 fl (7.5-11.1); NEUT % 66.5 % (42.8-82.8); PLATELET COUNT 293 10^3/uL (134-434); RDW 13.8 % (11.9-15.9); WHITE BLOOD COUNT 6.5 K/mm3 (4.0-10.0)
[2023-06-16 12:45] LABS: ALBUMIN 3.4 g/dl (3.4-5.0); BLOOD UREA NITROGEN 17.2 mg/dL (7-18); CALCIUM 10.9 mg/dL (8.5-10.1)
[2023-06-16 12:49] LABS: CREATININE 1.5 mg/dL (0.55-1.3)
[2023-06-16 12:50] LABS: BILIRUBIN,TOTAL 0.3 mg/dL (0.2-1); TOT PROT 7.1 g/dl (6.4-8.2)
[2023-06-16] MEDS: MELATONIN 1 MG TABLET PO SCH (21:26)
[2023-06-17] MEDS: SODIUM CHLORIDE 1,000 ML IV SCH ×3 (03:01→16:34)
[2023-06-17] MEDS: HEPARIN NA (PORCINE) 5,000 UNITS/ML 1ML VIAL SQ SCH ×3 (05:44→21:56)
[2023-06-17 09:34] LABS: HEMOGLOBIN 9.8 GM/dL (11.7-16.9); MCHC 35.1 g/dl (32.0-35.9); MEAN CELL VOLUME 94.1 fl (80-96); PLATELET COUNT 284 10^3/uL (134-434); RBC 2.98 M/mm3 (4.00-5.60); WHITE BLOOD COUNT 6.2 K/mm3 (4.0-10.0)
[2023-06-17 09:47] LABS: POTASSIUM 4.1 mmol/L (3.5-5.1)
[2023-06-17 09:52] LABS: ALBUMIN 3.3 g/dl (3.4-5.0); BLOOD UREA NITROGEN 18.6 mg/dL (7-18); CALCIUM 10.6 mg/dL (8.5-10.1); MAGNESIUM 1.6 mg/dL (1.8-2.4)
[2023-06-17 09:55] LABS: CREATININE 1.4 mg/dL (0.55-1.3); PHOSPHOROUS 2.8 mg/dL (2.5-4.9)
[2023-06-17 09:56] LABS: BILIRUBIN,TOTAL 0.6 mg/dL (0.2-1)
[2023-06-17] MEDS ORDERED: ARTIFICIAL TEARS (POLYVINYL ALCOHOL) OPTH DROPS OU PRN (09:59)
[2023-06-17 10:00] LABS: TOT PROT 6.7 g/dl (6.4-8.2)
[2023-06-17] MEDS ORDERED: MAGNESIUM 2GM/50ML STERILE WATER IVPB IVPB ONE (10:11)
[2023-06-17] MEDS: THIAMINE HCL 100 MG TABLET (FP) PO SCH (10:31)
[2023-06-17] MEDS: PANTOPRAZOLE 40 MG TABLET PO SCH (10:31)
[2023-06-17] MEDS: FAMOTIDINE 20 MG TABLET PO SCH (10:31)
[2023-06-17] MEDS: CEFTRIAXONE 1 GM in DEXTROSE 5%-WATER - 50 ML IVPB SCH (10:31)
[2023-06-17] MEDS: FOLIC ACID 1 MG TABLET (FP) PO SCH (10:31)
[2023-06-17] MEDS: MAGNESIUM OXIDE 400 MG TABLET (FP) PO SCH ×2 (10:31→21:56)
[2023-06-17] MEDS: MELATONIN 1 MG TABLET PO SCH (21:55)
[2023-06-18] MEDS: SODIUM CHLORIDE 1,000 ML IV SCH ×2 (03:43→10:44)
[2023-06-18] MEDS: HEPARIN NA (PORCINE) 5,000 UNITS/ML 1ML VIAL SQ SCH ×3 (05:33→21:29)
[2023-06-18 08:36] LABS: POTASSIUM 4.5 mmol/L (3.5-5.1)
[2023-06-18 08:38] LABS: BASO % 0.6 % (0-2.0); EOS % 3.8 % (0-4.5); HEMATOCRIT 26.7 % (35.4-49); HEMOGLOBIN 8.9 GM/dL (11.7-16.9); LYMPH % 14.2 % (8-40); MCH 32.1 pg (25.7-33.7); MCHC 33.2 g/dl (32.0-35.9); MEAN CELL VOLUME 96.8 fl (80-96); MEAN PLT VOLUME 8.2 fl (7.5-11.1); MONO % 9.3 % (3.8-10.2); NEUT % 72.1 % (42.8-82.8); PLATELET COUNT 317 10^3/uL (134-434); RBC 2.76 M/mm3 (4.00-5.60); RDW 13.7 % (11.9-15.9); WHITE BLOOD COUNT 7.4 K/mm3 (4.0-10.0)
[2023-06-18 08:44] LABS: BLOOD UREA NITROGEN 16.9 mg/dL (7-18)
[2023-06-18 08:45] LABS: ALBUMIN 3.1 g/dl (3.4-5.0)
[2023-06-18 08:46] LABS: BILIRUBIN,TOTAL 0.3 mg/dL (0.2-1); TOT PROT 6.4 g/dl (6.4-8.2)
[2023-06-18 08:47] LABS: PHOSPHOROUS 2.7 mg/dL (2.5-4.9)
[2023-06-18 08:48] LABS: CALCIUM 10.1 mg/dL (8.5-10.1); CREATININE 1.2 mg/dL (0.55-1.3); MAGNESIUM 1.8 mg/dL (1.8-2.4)
[2023-06-18] MEDS: CEFTRIAXONE 1 GM in DEXTROSE 5%-WATER - 50 ML IVPB SCH (10:43)
[2023-06-18] MEDS: FOLIC ACID 1 MG TABLET (FP) PO SCH (10:43)
[2023-06-18] MEDS: PANTOPRAZOLE 40 MG TABLET PO SCH (10:44)
[2023-06-18] MEDS: FAMOTIDINE 20 MG TABLET PO SCH (10:44)
[2023-06-18] MEDS: MAGNESIUM OXIDE 400 MG TABLET (FP) PO SCH ×2 (10:44→21:29)
[2023-06-18] MEDS: THIAMINE HCL 100 MG TABLET (FP) PO SCH (10:44)
[2023-06-18] MEDS: MELATONIN 1 MG TABLET PO SCH (21:29)
[2023-06-19] MEDS: HEPARIN NA (PORCINE) 5,000 UNITS/ML 1ML VIAL SQ SCH ×3 (06:24→22:03)
[2023-06-19 08:39] LABS: BASO % 0.5 % (0-2.0); EOS % 3.4 % (0-4.5); HEMATOCRIT 25.9 % (35.4-49); MCH 32.7 pg (25.7-33.7); MCHC 34.6 g/dl (32.0-35.9); MEAN CELL VOLUME 94.3 fl (80-96); MEAN PLT VOLUME 8.2 fl (7.5-11.1); MONO % 9.6 % (3.8-10.2); NEUT % 71.5 % (42.8-82.8); PLATELET COUNT 312 10^3/uL (134-434); RBC 2.75 M/mm3 (4.00-5.60); RDW 13.8 % (11.9-15.9); WHITE BLOOD COUNT 7.2 K/mm3 (4.0-10.0)
[2023-06-19 09:10] LABS: POTASSIUM 4.2 mmol/L (3.5-5.1)
[2023-06-19 09:16] LABS: BLOOD UREA NITROGEN 18.2 mg/dL (7-18); CALCIUM 10.5 mg/dL (8.5-10.1); MAGNESIUM 1.7 mg/dL (1.8-2.4)
[2023-06-19 09:18] LABS: CREATININE 1.2 mg/dL (0.55-1.3); PHOSPHOROUS 3.2 mg/dL (2.5-4.9)
[2023-06-19 09:20] LABS: TOT PROT 6.2 g/dl (6.4-8.2)
[2023-06-19 09:24] LABS: BILIRUBIN,TOTAL 0.3 mg/dL (0.2-1)
[2023-06-19] MEDS: FAMOTIDINE 20 MG TABLET PO SCH (10:28)
[2023-06-19] MEDS: MAGNESIUM OXIDE 400 MG TABLET (FP) PO SCH ×2 (10:28→22:03)
[2023-06-19] MEDS: FOLIC ACID 1 MG TABLET (FP) PO SCH (10:28)
[2023-06-19] MEDS: PANTOPRAZOLE 40 MG TABLET PO SCH (10:28)
[2023-06-19] MEDS: THIAMINE HCL 100 MG TABLET (FP) PO SCH (10:28)
[2023-06-19] MEDS: SODIUM CHLORIDE 1,000 ML IV SCH (10:29)
[2023-06-19] MEDS: CEFTRIAXONE 1 GM in DEXTROSE 5%-WATER - 50 ML IVPB SCH (10:30)
[2023-06-19] MEDS ORDERED: POLYETHYLENE GLYCOL (HEALTHYLAX) 3350 17 GM PACKET PO SCH (15:00)
[2023-06-19] MEDS ORDERED: MAGNESIUM SULF 50% (8.12 MEQ/2 ML-1 GM VIAL) IVPB ONE (16:26)
[2023-06-19] MEDS: HYDROCORTISONE 2.5% TOPICAL CREAM 30 GM TUBE TP SCH (21:59)
[2023-06-19] MEDS: POLYETHYLENE GLYCOL (HEALTHYLAX) 3350 17 GM PACKET PO SCH (22:00)
[2023-06-19] MEDS ORDERED: SENNOSIDES 8.8 MG/5 ML SYRUP PO SCH (22:00)
[2023-06-19] MEDS: MELATONIN 1 MG TABLET PO SCH (22:03)
[2023-06-20] MEDS: HEPARIN NA (PORCINE) 5,000 UNITS/ML 1ML VIAL SQ SCH ×2 (06:00→14:19)
[2023-06-20] MEDS: HYDROCORTISONE 2.5% TOPICAL CREAM 30 GM TUBE TP SCH ×2 (09:28→21:51)
[2023-06-20] MEDS: POLYETHYLENE GLYCOL (HEALTHYLAX) 3350 17 GM PACKET PO SCH ×2 (09:28→21:52)
[2023-06-20] MEDS: THIAMINE HCL 100 MG TABLET (FP) PO SCH (09:28)
[2023-06-20] MEDS: MAGNESIUM OXIDE 400 MG TABLET (FP) PO SCH ×2 (09:28→21:52)
[2023-06-20] MEDS: FOLIC ACID 1 MG TABLET (FP) PO SCH (09:28)
[2023-06-20] MEDS: SODIUM CHLORIDE 1,000 ML IV SCH ×2 (09:28→20:42)
[2023-06-20] MEDS: FAMOTIDINE 20 MG TABLET PO SCH (09:29)
[2023-06-20] MEDS: PANTOPRAZOLE 40 MG TABLET PO SCH (09:29)
[2023-06-20 13:24] LABS: HEMATOCRIT 27.5 % (35.4-49); HEMOGLOBIN 9.2 GM/dL (11.7-16.9); MCH 32.3 pg (25.7-33.7); MCHC 33.6 g/dl (32.0-35.9); MEAN PLT VOLUME 7.9 fl (7.5-11.1); PLATELET COUNT 363 10^3/uL (134-434); RBC 2.86 M/mm3 (4.00-5.60); RDW 13.9 % (11.9-15.9)
[2023-06-20 13:36] LABS: CALCIUM 10.2 mg/dL (8.5-10.1)
[2023-06-20 13:37] LABS: ALBUMIN 3.3 g/dl (3.4-5.0); BLOOD UREA NITROGEN 18.7 mg/dL (7-18)
[2023-06-20 13:40] LABS: CREATININE 1.3 mg/dL (0.55-1.3)
[2023-06-20 13:42] LABS: BILIRUBIN,TOTAL 0.3 mg/dL (0.2-1); TOT PROT 6.6 g/dl (6.4-8.2)
[2023-06-20] MEDS: MELATONIN 1 MG TABLET PO SCH (21:52)
[2023-06-21 08:35] LABS: HEMATOCRIT 25.6 % (35.4-49); HEMOGLOBIN 8.7 GM/dL (11.7-16.9); MCH 32.8 pg (25.7-33.7); MCHC 34.1 g/dl (32.0-35.9); MEAN CELL VOLUME 96.3 fl (80-96); MEAN PLT VOLUME 7.8 fl (7.5-11.1); PLATELET COUNT 331 10^3/uL (134-434); RBC 2.65 M/mm3 (4.00-5.60); RDW 14.1 % (11.9-15.9); WHITE BLOOD COUNT 6.5 K/mm3 (4.0-10.0)
[2023-06-21] MEDS: SODIUM CHLORIDE 1,000 ML IV SCH (08:40)
[2023-06-21 09:08] LABS: POTASSIUM 4.5 mmol/L (3.5-5.1)
[2023-06-21 09:15] LABS: CALCIUM 9.8 mg/dL (8.5-10.1)
[2023-06-21 09:16] LABS: MAGNESIUM 1.7 mg/dL (1.8-2.4)
[2023-06-21 09:19] LABS: BILIRUBIN,TOTAL 0.5 mg/dL (0.2-1); PHOSPHOROUS 2.8 mg/dL (2.5-4.9)
[2023-06-21 09:20] LABS: BLOOD UREA NITROGEN 18.2 mg/dL (7-18); TOT PROT 6.2 g/dl (6.4-8.2)
[2023-06-21] MEDS: THIAMINE HCL 100 MG TABLET (FP) PO SCH (10:19)
[2023-06-21] MEDS: PANTOPRAZOLE 40 MG TABLET PO SCH (10:20)
[2023-06-21] MEDS: POLYETHYLENE GLYCOL (HEALTHYLAX) 3350 17 GM PACKET PO SCH ×2 (10:20→21:28)
[2023-06-21] MEDS: MAGNESIUM OXIDE 400 MG TABLET (FP) PO SCH ×2 (10:20→21:28)
[2023-06-21] MEDS: FOLIC ACID 1 MG TABLET (FP) PO SCH (10:20)
[2023-06-21] MEDS: HYDROCORTISONE 2.5% TOPICAL CREAM 30 GM TUBE TP SCH ×2 (10:20→21:28)
[2023-06-21] MEDS: FAMOTIDINE 20 MG TABLET PO SCH (10:20)
[2023-06-21] MEDS: CEFTRIAXONE 1 GM in DEXTROSE 5%-WATER - 50 ML IVPB SCH (11:36)
[2023-06-21 15:05] LABS: EPI CELLS 11 /uL (0-25.1); HYALINE CASTS 0 /uL (0-3.1); PH,URINE 6.5 (5.0-8.0); URINE APPEARANCE CLEAR; URINE BACTERIA 18 /uL (0-1359); URINE BILIRUBIN NEGATIVE (NEGATIVE); URINE COLOR YELLOW; URINE GLUCOSE (UA) NEGATIVE (NEGATIVE); URINE KETONE NEGATIVE (NEGATIVE); URINE LEUK ESTERASE TRACE (NEGATIVE); URINE NITRITE NEGATIVE (NEGATIVE); URINE PROTEIN TRACE (NEGATIVE); URINE RBC 13 /uL (0-23.9); URINE UROBILINOGEN 0.2 mg/dL (0.2-1.0); URINE WBC 66 /uL (0-25.8)
[2023-06-21] MEDS: MELATONIN 1 MG TABLET PO SCH (21:28)
[2023-06-22] MEDS: SODIUM CHLORIDE 1,000 ML IV SCH ×3 (06:34→17:08)
[2023-06-22 09:15] LABS: BASO % 0.6 % (0-2.0); EOS % 3.2 % (0-4.5); HEMATOCRIT 25.8 % (35.4-49); LYMPH % 15.3 % (8-40); MCH 32.9 pg (25.7-33.7); MEAN CELL VOLUME 94.1 fl (80-96); MEAN PLT VOLUME 7.5 fl (7.5-11.1); MONO % 12.8 % (3.8-10.2); NEUT % 68.1 % (42.8-82.8); PLATELET COUNT 317 10^3/uL (134-434); RBC 2.75 M/mm3 (4.00-5.60); RDW 13.9 % (11.9-15.9); WHITE BLOOD COUNT 6.9 K/mm3 (4.0-10.0)
[2023-06-22 09:55] LABS: POTASSIUM 4.5 mmol/L (3.5-5.1)
[2023-06-22] MEDS: PANTOPRAZOLE 40 MG TABLET PO SCH (10:10)
[2023-06-22] MEDS: MAGNESIUM OXIDE 400 MG TABLET (FP) PO SCH ×2 (10:10→21:36)
[2023-06-22] MEDS: THIAMINE HCL 100 MG TABLET (FP) PO SCH (10:10)
[2023-06-22] MEDS: FOLIC ACID 1 MG TABLET (FP) PO SCH (10:10)
[2023-06-22] MEDS: FAMOTIDINE 20 MG TABLET PO SCH (10:10)
[2023-06-22 10:11] LABS: CALCIUM 10.1 mg/dL (8.5-10.1); CREATININE 1.2 mg/dL (0.55-1.3)
[2023-06-22] MEDS: HYDROCORTISONE 2.5% TOPICAL CREAM 30 GM TUBE TP SCH ×2 (10:11→21:35)
[2023-06-22] MEDS: POLYETHYLENE GLYCOL (HEALTHYLAX) 3350 17 GM PACKET PO SCH ×2 (10:11→21:35)
[2023-06-22] MEDS: CEFTRIAXONE 1 GM in DEXTROSE 5%-WATER - 50 ML IVPB SCH (10:11)
[2023-06-22 10:12] LABS: BLOOD UREA NITROGEN 18.6 mg/dL (7-18)
[2023-06-22 10:16] LABS: BILIRUBIN,TOTAL 0.6 mg/dL (0.2-1)
[2023-06-22 10:17] LABS: TOT PROT 6.2 g/dl (6.4-8.2)
[2023-06-22] MEDS: MELATONIN 1 MG TABLET PO SCH (21:37)
[2023-06-23] MEDS: SODIUM CHLORIDE 1,000 ML IV SCH ×3 (06:02→16:36)
[2023-06-23] MEDS: POLYETHYLENE GLYCOL (HEALTHYLAX) 3350 17 GM PACKET PO SCH ×2 (09:20→21:42)
[2023-06-23] MEDS: FOLIC ACID 1 MG TABLET (FP) PO SCH (09:20)
[2023-06-23] MEDS: FUROSEMIDE 20 MG TABLET (FP) PO SCH (09:20)
[2023-06-23] MEDS: CEFTRIAXONE 1 GM in DEXTROSE 5%-WATER - 50 ML IVPB SCH (09:20)
[2023-06-23] MEDS: MAGNESIUM OXIDE 400 MG TABLET (FP) PO SCH ×2 (09:21→21:41)
[2023-06-23] MEDS: THIAMINE HCL 100 MG TABLET (FP) PO SCH (09:21)
[2023-06-23] MEDS: FAMOTIDINE 20 MG TABLET PO SCH (09:21)
[2023-06-23] MEDS: PANTOPRAZOLE 40 MG TABLET PO SCH (09:21)
[2023-06-23] MEDS: HYDROCORTISONE 2.5% TOPICAL CREAM 30 GM TUBE TP SCH ×2 (09:22→21:42)
[2023-06-23 10:03] LABS: BASO % 0.6 % (0-2.0); EOS % 2.7 % (0-4.5); HEMATOCRIT 28.7 % (35.4-49); HEMOGLOBIN 9.7 GM/dL (11.7-16.9); LYMPH % 15.6 % (8-40); MCH 32.3 pg (25.7-33.7); MCHC 33.6 g/dl (32.0-35.9); MEAN CELL VOLUME 96.1 fl (80-96); MEAN PLT VOLUME 7.9 fl (7.5-11.1); MONO % 10.8 % (3.8-10.2); NEUT % 70.3 % (42.8-82.8); PLATELET COUNT 364 10^3/uL (134-434); RBC 2.99 M/mm3 (4.00-5.60); RDW 13.7 % (11.9-15.9); WHITE BLOOD COUNT 8.8 K/mm3 (4.0-10.0)
[2023-06-23 10:34] LABS: POTASSIUM 4.4 mmol/L (3.5-5.1)
[2023-06-23 10:36] LABS: ALBUMIN 3.6 g/dl (3.4-5.0); CALCIUM 10.7 mg/dL (8.5-10.1); MAGNESIUM 1.8 mg/dL (1.8-2.4)
[2023-06-23 10:39] LABS: CREATININE 1.3 mg/dL (0.55-1.3); PHOSPHOROUS 3.1 mg/dL (2.5-4.9)
[2023-06-23 10:41] LABS: BILIRUBIN,TOTAL 0.5 mg/dL (0.2-1); TOT PROT 7.2 g/dl (6.4-8.2)
[2023-06-23] MEDS: MELATONIN 1 MG TABLET PO SCH (21:41)
[2023-06-24] MEDS: SODIUM CHLORIDE 1,000 ML IV SCH (06:37)
[2023-06-24] MEDS: FOLIC ACID 1 MG TABLET (FP) PO SCH (09:12)
[2023-06-24] MEDS: FAMOTIDINE 20 MG TABLET PO SCH (09:12)
[2023-06-24] MEDS: MAGNESIUM OXIDE 400 MG TABLET (FP) PO SCH ×2 (09:12→21:53)
[2023-06-24] MEDS: FUROSEMIDE 20 MG TABLET (FP) PO SCH (09:12)
[2023-06-24] MEDS: PANTOPRAZOLE 40 MG TABLET PO SCH (09:12)
[2023-06-24] MEDS: POLYETHYLENE GLYCOL (HEALTHYLAX) 3350 17 GM PACKET PO SCH ×2 (09:12→21:53)
[2023-06-24] MEDS: THIAMINE HCL 100 MG TABLET (FP) PO SCH (09:12)
[2023-06-24] MEDS: CEFTRIAXONE 1 GM in DEXTROSE 5%-WATER - 50 ML IVPB SCH (09:13)
[2023-06-24 09:27] LABS: BASO % 0.7 % (0-2.0); EOS % 2.3 % (0-4.5); HEMOGLOBIN 9.6 GM/dL (11.7-16.9); LYMPH % 15.4 % (8-40); MCH 31.9 pg (25.7-33.7); MCHC 33.1 g/dl (32.0-35.9); MEAN CELL VOLUME 96.3 fl (80-96); MEAN PLT VOLUME 7.8 fl (7.5-11.1); MONO % 9.9 % (3.8-10.2); NEUT % 71.7 % (42.8-82.8); PLATELET COUNT 359 10^3/uL (134-434); RBC 3.01 M/mm3 (4.00-5.60); RDW 13.8 % (11.9-15.9)
[2023-06-24 09:50] LABS: POTASSIUM 4.1 mmol/L (3.5-5.1)
[2023-06-24 09:54] LABS: CALCIUM 10.1 mg/dL (8.5-10.1)
[2023-06-24 09:55] LABS: MAGNESIUM 1.9 mg/dL (1.8-2.4)
[2023-06-24 09:56] LABS: ALBUMIN 3.4 g/dl (3.4-5.0); BLOOD UREA NITROGEN 22.9 mg/dL (7-18)
[2023-06-24 09:58] LABS: PHOSPHOROUS 2.6 mg/dL (2.5-4.9)
[2023-06-24 10:00] LABS: BILIRUBIN,TOTAL 0.6 mg/dL (0.2-1); CREATININE 1.4 mg/dL (0.55-1.3); TOT PROT 6.9 g/dl (6.4-8.2)
[2023-06-24] MEDS: HYDROCORTISONE 2.5% TOPICAL CREAM 30 GM TUBE TP SCH ×2 (10:49→22:39)
[2023-06-24 14:41] VITALS: RESP 18
[2023-06-24] MEDS ORDERED: ZOLEDRONIC ACID 3 MG in SODIUM CHLORIDE 100 ML IVPB ONE (15:15)
[2023-06-24] MEDS: MELATONIN 1 MG TABLET PO SCH (21:53)
[2023-06-25 05:58] VITALS: TEMP 98.4
[2023-06-25] MEDS ORDERED: cefTRIAXone SODIUM 1 GM VIAL ONE (10:13)
[2023-06-25] MEDS: THIAMINE HCL 100 MG TABLET (FP) PO SCH (10:22)
[2023-06-25] MEDS: POLYETHYLENE GLYCOL (HEALTHYLAX) 3350 17 GM PACKET PO SCH (10:22)
[2023-06-25] MEDS: PANTOPRAZOLE 40 MG TABLET PO SCH (10:22)
[2023-06-25] MEDS: CEFTRIAXONE 1 GM in DEXTROSE 5%-WATER - 50 ML IVPB SCH (10:22)
[2023-06-25] MEDS: FOLIC ACID 1 MG TABLET (FP) PO SCH (10:22)
[2023-06-25] MEDS: FAMOTIDINE 20 MG TABLET PO SCH (10:22)
[2023-06-25] MEDS: MAGNESIUM OXIDE 400 MG TABLET (FP) PO SCH (10:22)
[2023-06-25] MEDS: HYDROCORTISONE 2.5% TOPICAL CREAM 30 GM TUBE TP SCH (10:23)
[2023-06-25 14:10] VITALS: BP 146/80; PULSE 78
== END 2023-06-25 15:00 | disposition home or self-care (01) | DRG 840 ==
LOC: JER 19:24 → JERBED 22:34 → J4W 05-30 15:05 → J5S 06-03 18:36 → J6S 06-24 19:17
PROVIDERS: ADMIT Internal Medicine; ATTEND Internal Medicine
PROC: 0DD68ZX Extraction of Stomach, Via Natural or Artificial Opening Endoscopic, Diagnostic (ICD-10-PCS; 2023-06-06)
PROC: 0DJD8ZZ Inspection of Lower Intestinal Tract, Via Natural or Artificial Opening Endoscopic (ICD-10-PCS; 2023-06-06)
PROC: 0DB58ZX Excision of Esophagus, Via Natural or Artificial Opening Endoscopic, Diagnostic (ICD-10-PCS; principal; 2023-06-06 11:00)
DX: C85.90 Non-Hodgkin lymphoma, unspecified, unspecified site (principal); E43 Unspecified severe protein-calorie malnutrition; J18.9 Pneumonia, unspecified organism; N17.9 Acute kidney failure, unspecified; N39.0 Urinary tract infection, site not specified; E83.52 Hypercalcemia; N20.0 Calculus of kidney; R00.1 Bradycardia, unspecified; Z68.21 Body mass index [BMI] 21.0-21.9, adult; R13.19 Other dysphagia; F10.20 Alcohol dependence, uncomplicated; J45.909 Unspecified asthma, uncomplicated; I12.9 Hypertensive chronic kidney disease with stage 1 through stage 4 chronic kidney disease, or unspecified chronic kidney disease; N18.30 Chronic kidney disease, stage 3 unspecified; Z96.651 Presence of right artificial knee joint; K21.9 Gastro-esophageal reflux disease without esophagitis; K22.70 Barrett's esophagus without dysplasia; K44.9 Diaphragmatic hernia without obstruction or gangrene; K29.60 Other gastritis without bleeding; K57.90 Diverticulosis of intestine, part unspecified, without perforation or abscess without bleeding; K64.8 Other hemorrhoids; N32.3 Diverticulum of bladder; R50.9 Fever, unspecified; N40.0 Benign prostatic hyperplasia without lower urinary tract symptoms; D73.89 Other diseases of spleen
CPT/HCPCS: 0241U-QW; 36415; 70491-TC; 71045-TC-FY; 71250-TC; 71260-TC; 73030-TC-RT-FY; 74176-TC; 74220-TC-FY; 74240-TC-FY; 76536-TC; 76775-TC; 77074-TC-FY; 80048; 80053; 81003; 82105; 82272; 82306; 82310; 82378; 82397; 82550; 82570; 82652; 82728; 82784; 83516; 83540; 83550; 83615; 83690; 83735; 83883; 83935; 83970; 84100; 84153; 84155; 84165; 84300; 84439; 84443; 84481; 84484; 85025; 85027; 85045; 85610; 86038; 86140; 86301; 86334; 86480; 86704; 86706; 86803; 86850; 86900; 86901; 87040; 87086; 87186; 87340; 87389; 87517; 87522; 88300-TC; 88305-TC; 93005; 93010; 94010; 97116-GP; 97161-GP; 99285-25; J1644; J1756; J3489